=== PATIENT | female | born 1985 | race American Indian/Alaskan Native ===

== ENCOUNTER 2017-06-19 15:15 | Emergency (ER) | payer MEDICAID, OTHER ==
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
[2017-06-19] MEDS ORDERED: TORADOL IM ONE (18:11)
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
[2017-06-19 19:34] VITALS: BP 105/75
== END 2017-06-19 19:32 | disposition home or self-care (01) ==
LOC: ED 15:15
DX: S00.11XA Contusion of right eyelid and periocular area, initial encounter (principal); S00.511A Abrasion of lip, initial encounter; F17.200 Nicotine dependence, unspecified, uncomplicated; F12.10 Cannabis abuse, uncomplicated; Y04.8XXA Assault by other bodily force, initial encounter; Y93.89 Activity, other specified; Y92.89 Other specified places as the place of occurrence of the external cause; Y99.8 Other external cause status
CPT/HCPCS: 70486; 96372; 99283; J1885